=== PATIENT | male | born 1980 | race Caucasian/White ===

== ENCOUNTER 2016-12-24 15:23 | Emergency (ER) | payer OTHER ==
[~2016-12-24] VITALS: Ht 177.8 cm; Wt 73.3 kg
[~2016-12-24 15:23] MED LIST: ACID REDUCER10 MG PO; ADVIL200 MG PO; AUGMENTIN875 MG PO; BACTRIM,SEPT1 TABLET PO; COLAZAL750 MG PO; CREON 241 CAPSULE PO; DAILY VALUE1 EACH PO; DICYCLOMINE HCL20 MG PO; DILAUDID1 MG/ML IV; DILAUDID2 MG PO; ENDOCET 5-3251 EACH PO; FERROUS SULFAT325 MG PO; FLAGYL500 MG PO; IRON325 M1 PO; LANTUS 3 M100 UNITS1 SC; METFORMIN HCL1000 MG PO; MUCINEX600 MG PO; OXYCODONE HCL5 MG PO; OXYCODONE-APAP1 EACH PO; PANTOPRAZOLE SO40 MG PO; PERCOCET 10/1 TABLET PO; PERCOCET 5/31 TABLET PO; POTASSIUM CHLO20 ME1 PO; PREDNISONE10 MG PO; PREDNISONE20 MG PO; PROTONIX40 MG PO; REMICADE10 MG/ML IV; ROXICODONE5 MG PO; SOLU-MEDRO125 MG/21 IV; ZANTAC150 MG PO; ZANTAC75 M1 PO; ZOFRAN ODT4 MG PO; ZOFRAN4 MG PO; heartburn med PO
[2016-12-24 16:19] LABS: BASOPHIL COUNT 0.1 K/uL (0-0.1); EOSINOPHIL (%) 3.9 % (0-5); EOSINOPHIL COUNT 0.3 K/uL (0-0.3); HEMATOCRIT 46.9 % (38.0-50.0); LYMPHOCYTE COUNT 0.8 K/uL (1.0-2.8); MCH 30.5 PG (29.0-34.0); MCHC 34.8 G/DL (30.0-36.0); MCV 87.7 FL (86-99); MEAN PLAT.VOLUME 10.3 uM^3 (9.0-12.4); MONOCYTE (%) 4.3 % (3-12); MONOCYTE COUNT 0.3 K/uL (0-0.8); NEUTROPHIL (%) 80.7 % (45-76); NEUTROPHIL COUNT 6.2 K/uL (1.8-6.4); PLATELET COUNT 335 K/uL (156-360); RBC DIS.WIDTH-CV 12.5 % (11.8-14.6); RBC DIS.WIDTH-SD 39.9 % (39-53); RED BLOOD COUNT 5.35 M/uL (4.00-5.50); WHITE BLOOD COUNT 7.6 K/uL (4.1-10.2)
[2016-12-24 16:29] LABS: CHLORIDE 104 mEq/L (99-109); POTASSIUM 3.7 mEq/L (3.7-5.4); SODIUM 141 mEq/L (136-147)
[2016-12-24 16:31] LABS: GLUCOSE 208 mg/dL (70-99)
[2016-12-24 16:33] LABS: ANION GAP 11 MEQ/L (2-14); TOTAL BILIRUBIN 1.1 mg/dL (0.0-1.0)
[2016-12-24 16:35] LABS: ALKALINE PHOSPHATASE 281 IU/L (3-129); GFR ESTIMATE (CALCULATED) > 59 mL/min/
[2016-12-24 16:36] LABS: UREA NITROGEN (BUN) 9 mg/dL (9-23)
[2016-12-24 16:38] LABS: LIPASE 3 U/L (1.0-51.0)
[2016-12-24 19:07] LABS: POINT-OF-CARE METER ID UU14100415
[2016-12-24] MEDS ORDERED: PERCOCET 5/31 TABLET PO (20:30)
[2016-12-24 20:50] VITALS: BP 132/80
== END 2016-12-24 20:50 | disposition home or self-care (01) ==
LOC: EME 15:23
PROVIDERS: Emergency Medicine; Physician Assistant
DX: K62.89 Other specified diseases of anus and rectum (principal); K21.9 Gastro-esophageal reflux disease without esophagitis; Z93.2 Ileostomy status; Z87.891 Personal history of nicotine dependence
CPT/HCPCS: 74177; 80053; 81003; 82948; 83690; 85025; 99281; 99285; J1170; J2270; J7040

== ENCOUNTER 2017-04-19 15:01 | Emergency (ER) | payer OTHER ==
[~2017-04-19] VITALS: Ht 177.8 cm; Wt 69.1 kg
[2017-04-19 15:55] LABS: POINT-OF-CARE METER ID UU13113778
[2017-04-19 16:44] LABS: EOSINOPHIL (%) 0.1 % (0-5); HEMATOCRIT 50.7 % (38.0-50.0); IMMATURE GRANULOCYTE (%) 0.4 % (0.0-0.7); INSTRUMENT ABS NEUTROPHIL CT 8.1 K/uL; LYMPHOCYTE COUNT 1.1 K/uL (1.0-2.8); MCH 29.6 PG (29.0-34.0); MCHC 35.1 G/DL (30.0-36.0); MCV 84.4 FL (86-99); MONOCYTE (%) 5.4 % (3-12); MONOCYTE COUNT 0.5 K/uL (0-0.8); NEUTROPHIL (%) 82.5 % (45-76); NEUTROPHIL COUNT 8.1 K/uL (1.8-6.4); PLATELET COUNT 473 K/uL (156-360); RBC DIS.WIDTH-CV 13.2 % (11.8-14.6); RBC DIS.WIDTH-SD 40.1 % (39-53); RED BLOOD COUNT 6.01 M/uL (4.00-5.50); WHITE BLOOD COUNT 9.9 K/uL (4.1-10.2)
[2017-04-19 16:58] LABS: CHLORIDE 92 mEq/L (99-109); POTASSIUM 3.9 mEq/L (3.7-5.4); SODIUM 135 mEq/L (136-147)
[2017-04-19 17:00] LABS: GLUCOSE 304 mg/dL (70-99)
[2017-04-19 17:02] LABS: ANION GAP 18 MEQ/L (2-14)
[2017-04-19 17:04] LABS: ALKALINE PHOSPHATASE 318 IU/L (3-129); GFR ESTIMATE (CALCULATED) > 59 mL/min/
[2017-04-19 17:05] LABS: UREA NITROGEN (BUN) 27 mg/dL (9-23)
[2017-04-19 17:07] LABS: LIPASE 3 U/L (1.0-51.0)
[2017-04-19] MEDS ORDERED: LORTAB 10-3251 EACH PO (19:38)
[2017-04-19] MEDS ORDERED: ZOFRAN4 MG PO (19:38)
[2017-04-19 19:50] LABS: ADD MIUA? NO; BILIRUBIN NEGATIVE; BLOOD NEGATIVE; COLOR YELLOW ((YELLOW)); GLUCOSE (STRIP) 50; KETONES 5; LEUKOCYTES NEGATIVE; NITRITE NEGATIVE; PROTEIN (STRIP) 30; UCUL ADDED? NO; UROBILINOGEN 0.2 MG/DL (0.2-1.0)
[2017-04-19 20:06] LABS: SPECIFIC GRAVITY 1.094 (1.000-1.030)
[2017-04-19 20:20] VITALS: BP 111/78
== END 2017-04-19 20:22 | disposition home or self-care (01) ==
LOC: EME 15:01
PROVIDERS: Emergency Medicine
DX: R11.2 Nausea with vomiting, unspecified (principal); E86.0 Dehydration; Z87.891 Personal history of nicotine dependence
CPT/HCPCS: 74177; 80053; 81003; 82948; 83690; 85025; 99281; 99284; J2270; J2405; J3010; J7030

== ENCOUNTER 2017-06-12 18:59 | Inpatient (IN) | payer OTHER ==
[~2017-06-12] VITALS: Ht 177.8 cm; Wt 71.2 kg
[~2017-06-12 18:59] MED LIST changes: +LORTAB 10-3251 EACH PO
[2017-06-12 20:17] LABS: EOSINOPHIL (%) 0 % (0-5); HEMATOCRIT 46.1 % (38.0-50.0); IMMATURE GRANULOCYTE (%) 0.4 % (0.0-0.7); IMMATURE GRANULOCYTE COUNT 0.1 K/uL; INSTRUMENT ABS NEUTROPHIL CT 12.7 K/uL; LYMPHOCYTE COUNT 0.9 K/uL (1.0-2.8); MCH 30.5 PG (29.0-34.0); MCHC 35.8 G/DL (30.0-36.0); MCV 85.2 FL (86-99); MEAN PLAT.VOLUME 10.2 uM^3 (9.0-12.4); MONOCYTE (%) 6.5 % (3-12); NEUTROPHIL (%) 86.7 % (45-76); NEUTROPHIL COUNT 12.7 K/uL (1.8-6.4); PLATELET COUNT 347 K/uL (156-360); RBC DIS.WIDTH-CV 12.4 % (11.8-14.6); RBC DIS.WIDTH-SD 38.4 % (39-53); RED BLOOD COUNT 5.41 M/uL (4.00-5.50); WHITE BLOOD COUNT 14.7 K/uL (4.1-10.2)
[2017-06-12 20:28] LABS: CHLORIDE 69 mEq/L (99-109); SODIUM 128 mEq/L (136-147)
[2017-06-12 20:31] LABS: ANION GAP 28 MEQ/L (2-14)
[2017-06-12 20:32] LABS: TOTAL BILIRUBIN 3.2 mg/dL (0.0-1.0)
[2017-06-12 20:33] LABS: ALKALINE PHOSPHATASE 361 IU/L (3-129)
[2017-06-12 20:34] LABS: GFR ESTIMATE (CALCULATED) 40 mL/min/
[2017-06-12 20:35] LABS: UREA NITROGEN (BUN) 48 mg/dL (9-23)
[2017-06-12 20:37] LABS: LIPASE 9 U/L (1.0-51.0)
[2017-06-12 20:39] LABS: GLUCOSE 681 mg/dL (70-99)
[2017-06-12 21:15] LABS: Estimated Average Glucose 177 mg/dL (70-123); HEMOGLOBIN A1c (GLYCOHEMOGLOB) 7.8 % HGB (Below 5.7)
[2017-06-12 22:07] LABS: C DIFF TOXIN NEGATIVE (NEGATIVE)
[2017-06-12 22:08] LABS: PROBE CHECK PASS; SPECIMEN PROCESSING CONTROL PASS
[2017-06-12 22:29] LABS: ADD MIUA? NO; BILIRUBIN NEGATIVE; BLOOD NEGATIVE; COLOR STRAW ((YELLOW)); GLUCOSE (STRIP) >=500; KETONES 5; LEUKOCYTES NEGATIVE; NITRITE NEGATIVE; PROTEIN (STRIP) NEGATIVE; UCUL ADDED? NO; UROBILINOGEN 0.2 MG/DL (0.2-1.0)
[2017-06-12] MEDS ORDERED: NOVOLOG PE100 UNITS/ SC (22:41)
[2017-06-12] MEDS ORDERED: HYDROXYZINE PAM25 MG PO (22:42)
[2017-06-12] MEDS ORDERED: BASAGLAR K100 UNIT/1 SC (22:42)
[2017-06-12] MEDS ORDERED: PROMETHAZINE HC25 M1 PO (22:43)
[2017-06-12] MEDS ORDERED: SUMATRIPTAN SUC25 MG PO (22:43)
[2017-06-12] MEDS ORDERED: PEPCID AC10 MG PO (22:44)
[2017-06-12 23:13] LABS: POINT-OF-CARE METER ID UU14100415
[2017-06-12 23:19] LABS: VENOUS PCO2 49 mm Hg (41-51)
[2017-06-12 23:21] LABS: CARBON DIOXIDE (BICARBONATE) > 40.0 MEQ/L (20-31)
[2017-06-13 01:03] LABS: EOSINOPHIL (%) 0.3 % (0-5); HEMATOCRIT 37.5 % (38.0-50.0); IMMATURE GRANULOCYTE (%) 0.4 % (0.0-0.7); INSTRUMENT ABS NEUTROPHIL CT 7.4 K/uL; LYMPHOCYTE COUNT 1.4 K/uL (1.0-2.8); MCH 30.5 PG (29.0-34.0); MCHC 35.7 G/DL (30.0-36.0); MCV 85.4 FL (86-99); MEAN PLAT.VOLUME 9.8 uM^3 (9.0-12.4); MONOCYTE (%) 8.9 % (3-12); MONOCYTE COUNT 0.9 K/uL (0-0.8); NEUTROPHIL (%) 76.2 % (45-76); NEUTROPHIL COUNT 7.4 K/uL (1.8-6.4); PLATELET COUNT 258 K/uL (156-360); RBC DIS.WIDTH-CV 12.4 % (11.8-14.6); RBC DIS.WIDTH-SD 38.5 % (39-53); RED BLOOD COUNT 4.39 M/uL (4.00-5.50); WHITE BLOOD COUNT 9.8 K/uL (4.1-10.2)
[2017-06-13 03:10] LABS: GLUCOSE 444 mg/dL (70-99)
[2017-06-13 03:11] LABS: CHLORIDE 87 MEQ/L (99-109); GFR ESTIMATE (CALCULATED) > 59 mL/min/; POTASSIUM 3.2 MEQ/L (3.7-5.4); SODIUM 136 MEQ/L (136-147); UREA NITROGEN (BUN) 37 mg/dL (9-23)
[2017-06-13 03:13] LABS: ALKALINE PHOSPHATASE 247 IU/L (3-129); ANION GAP 18 MEQ/L (2-14); TOTAL BILIRUBIN 2.1 MG/DL (0.0-1.0)
[2017-06-13 05:05] LABS: POINT-OF-CARE METER ID UU14100415; POINT-OF-CARE USER ID NUTMMM10
[2017-06-13 07:23] LABS: HEMATOCRIT 36.2 % (38.0-50.0); MCH 30.5 PG (29.0-34.0); MCHC 35.4 G/DL (30.0-36.0); MCV 86.4 FL (86-99); MEAN PLAT.VOLUME 9.9 uM^3 (9.0-12.4); PLATELET COUNT 232 K/uL (156-360); RBC DIS.WIDTH-CV 12.3 % (11.8-14.6); RBC DIS.WIDTH-SD 38.8 % (39-53); RED BLOOD COUNT 4.19 M/uL (4.00-5.50); WHITE BLOOD COUNT 7.3 K/uL (4.1-10.2)
[2017-06-13 07:44] LABS: CHLORIDE 90 mEq/L (99-109); POTASSIUM 3.8 mEq/L (3.7-5.4); SODIUM 135 mEq/L (136-147)
[2017-06-13 07:46] LABS: GLUCOSE 397 mg/dL (70-99)
[2017-06-13 07:47] LABS: ANION GAP 12 MEQ/L (2-14)
[2017-06-13 07:48] VITALS: BP 114/56
[2017-06-13 07:50] LABS: GFR ESTIMATE (CALCULATED) > 59 mL/min/
[2017-06-13 07:51] VITALS: BP 114/56
[2017-06-13 07:51] LABS: UREA NITROGEN (BUN) 32 mg/dL (9-23)
[2017-06-13 07:54] LABS: ALKALINE PHOSPHATASE 230 IU/L (3-129)
[2017-06-13 08:16] LABS: TOTAL BILIRUBIN 1.7 mg/dL (0.0-1.0)
[2017-06-13 11:06] VITALS: BP 113/63
[2017-06-13 12:31] LABS: METH RESISTANT S AUREUS PCR NEGATIVE (NEGATIVE); PROBE CHECK PASS; SPECIMEN PROCESSING CONTROL PASS
[2017-06-13 16:30] VITALS: BP 128/69
[2017-06-13 20:03] VITALS: BP 107/55
[2017-06-13 23:44] VITALS: BP 99/51
[2017-06-14 03:47] LABS: POINT-OF-CARE METER ID UU14188625
[2017-06-14 04:08] VITALS: BP 108/56
[2017-06-14 05:59] LABS: HEMATOCRIT 34.5 % (38.0-50.0); MCH 30.3 PG (29.0-34.0); MCHC 34.2 G/DL (30.0-36.0); MCV 88.5 FL (86-99); MEAN PLAT.VOLUME 10.2 uM^3 (9.0-12.4); PLATELET COUNT 213 K/uL (156-360); RBC DIS.WIDTH-CV 12.2 % (11.8-14.6); RBC DIS.WIDTH-SD 39.2 % (39-53); WHITE BLOOD COUNT 6.1 K/uL (4.1-10.2)
[2017-06-14 06:00] LABS: INTER. NORMALIZED RATIO 1.1; PROTHROMBIN TIME 11.9 SEC (10.2-12.9)
[2017-06-14 06:03] LABS: PTT 30.9 SEC (25-37)
[2017-06-14 07:32] LABS: POINT-OF-CARE METER ID UU14188625
[2017-06-14 07:43] VITALS: BP 97/57
[2017-06-14 11:18] LABS: POINT-OF-CARE METER ID UU14174225
[2017-06-14 11:25] VITALS: BP 102/57
[2017-06-14 15:46] VITALS: BP 111/61
[2017-06-14 16:51] LABS: POINT-OF-CARE METER ID UU14188625
[2017-06-14 20:12] LABS: C DIFF TOXIN ND (NEGATIVE)
[2017-06-14 23:27] LABS: IgG Subclass 4 (QD) 25.4 mg/dL (4.0-86.0)
[2017-06-15 00:12] VITALS: BP 104/55
[2017-06-15 06:11] LABS: BASOPHIL COUNT 0.1 K/uL (0-0.1); EOSINOPHIL (%) 6.5 % (0-5); EOSINOPHIL COUNT 0.4 K/uL (0-0.3); IMMATURE GRANULOCYTE (%) 0.3 % (0.0-0.7); INSTRUMENT ABS NEUTROPHIL CT 3.4 K/uL; LYMPHOCYTE COUNT 1.5 K/uL (1.0-2.8); MCH 31.5 PG (29.0-34.0); MCHC 35.3 G/DL (30.0-36.0); MCV 89.3 FL (86-99); MEAN PLAT.VOLUME 10.4 uM^3 (9.0-12.4); MONOCYTE (%) 7.6 % (3-12); MONOCYTE COUNT 0.4 K/uL (0-0.8); NEUTROPHIL (%) 58.4 % (45-76); NEUTROPHIL COUNT 3.4 K/uL (1.8-6.4); PLATELET COUNT 211 K/uL (156-360); RBC DIS.WIDTH-CV 12.2 % (11.8-14.6); RBC DIS.WIDTH-SD 39.8 % (39-53); RED BLOOD COUNT 4.03 M/uL (4.00-5.50); WHITE BLOOD COUNT 5.8 K/uL (4.1-10.2)
[2017-06-15 08:15] LABS: POINT-OF-CARE METER ID UU13113717
[2017-06-15 08:29] VITALS: BP 110/68
[2017-06-15 11:37] LABS: POINT-OF-CARE METER ID UU14188625
[2017-06-15 14:57] LABS: POINT-OF-CARE METER ID UU14188625
[2017-06-15 15:06] VITALS: BP 121/74
[2017-06-15 17:55] LABS: POINT-OF-CARE METER ID UU13113819; POINT-OF-CARE USER ID 515036437
[2017-06-15 21:04] LABS: POINT-OF-CARE METER ID UU13113717
[2017-06-15 22:17] LABS: MITOCHONDRIAL (M2) ANTIBODIES+ <=20.0 U (<=20.0)
[2017-06-15 23:48] VITALS: BP 109/66
[2017-06-16 08:26] VITALS: BP 119/67
[2017-06-16 08:45] LABS: POINT-OF-CARE METER ID UU13113717
[2017-06-16 12:03] LABS: POINT-OF-CARE METER ID UU14174225
[2017-06-16] MEDS ORDERED: DULOXETINE HCL30 MG PO (13:04)
[2017-06-16] MEDS ORDERED: BENTYL20 MG PO (13:04)
[2017-06-16] MEDS ORDERED: HYDROCORTISONE30 G2 PR (13:05)
[2017-06-16] MEDS ORDERED: PROTONIX40 MG PO (13:05)
[2017-06-16] MEDS ORDERED: OXYCODONE-APAP1 EACH PO (13:06)
[2017-06-16] MEDS ORDERED: METRONIDAZOLE500 MG PO (13:09)
[2017-06-16] MEDS ORDERED: BUSPAR10 MG PO (13:09)
== END 2017-06-16 16:01 | disposition home or self-care (01) | DRG 392 ==
LOC: EME 18:59 → 5SOUTH 06-13 00:38 → EDOF 06-13 00:38 → ENRESERV 06-13 03:44 → EDOF 06-13 05:43 → ENRESERV 06-13 05:54 → 5SOUTH 06-13 07:23
PROVIDERS: Emergency Medicine; Hospitalist; Internal Medicine; Specialist
PROC: 0DB38ZX Excision of Lower Esophagus, Via Natural or Artificial Opening Endoscopic, Diagnostic (ICD-10-PCS; principal; 2017-06-15)
PROC: 0DB68ZX Excision of Stomach, Via Natural or Artificial Opening Endoscopic, Diagnostic (ICD-10-PCS; principal; 2017-06-15)
PROC: 0DBP8ZX Excision of Rectum, Via Natural or Artificial Opening Endoscopic, Diagnostic (ICD-10-PCS; principal; 2017-06-15)
PROC: 0DBA8ZX Excision of Jejunum, Via Natural or Artificial Opening Endoscopic, Diagnostic (ICD-10-PCS; principal; 2017-06-15)
DX: K29.70 Gastritis, unspecified, without bleeding (principal); K91.850 Pouchitis; N17.9 Acute kidney failure, unspecified; E10.65 Type 1 diabetes mellitus with hyperglycemia; E86.0 Dehydration; E87.6 Hypokalemia; K51.20 Ulcerative (chronic) proctitis without complications; A09 Infectious gastroenteritis and colitis, unspecified; K20.9 Esophagitis, unspecified; K29.80 Duodenitis without bleeding; K58.9 Irritable bowel syndrome, unspecified; F34.1 Dysthymic disorder; F41.1 Generalized anxiety disorder; G89.4 Chronic pain syndrome; G43.909 Migraine, unspecified, not intractable, without status migrainosus; Z79.84 Long term (current) use of oral hypoglycemic drugs; Z79.4 Long term (current) use of insulin; Z93.2 Ileostomy status
CPT/HCPCS: 74022; 74176; 80053; 81003; 82787 90; 82803; 82948; 83036; 83605; 83690; 84075 90; 84080 90; 85025; 85027; 85610; 85730; 86038; 86256 90; 87040; 87086; 87493; 87506; 87641; 88305; 88312; 88342 TC; 99281; 99285; C9113; J0610; J1170; J1644; J1815; J2270; J2405; J2543; J3480; J7030; J7050; S0028

== ENCOUNTER 2018-02-24 10:09 | Emergency (ER) | payer OTHER ==
[~2018-02-24] VITALS: Ht 177.8 cm; Wt 67.4 kg
[~2018-02-24 10:09] MED LIST changes: +BASAGLAR K100 UNIT/1 SC; +BENTYL20 MG PO; +BUSPAR10 MG PO; +DULOXETINE HCL30 MG PO; +HYDROCORTISONE30 G2 PR; +HYDROXYZINE PAM25 MG PO; +METRONIDAZOLE500 MG PO; +NOVOLOG PE100 UNITS/ SC; +PEPCID AC10 MG PO; +PROMETHAZINE HC25 M1 PO; +SUMATRIPTAN SUC25 MG PO
[2018-02-24 11:04] LABS: BASOPHIL (%) 0.7 % (0-1); BASOPHIL COUNT 0.1 K/uL (0-0.1); EOSINOPHIL (%) 1.7 % (0-5); EOSINOPHIL COUNT 0.2 K/uL (0-0.3); HEMATOCRIT 48.1 % (38.0-50.0); HEMOGLOBIN 16.8 G/DL (12.5-16.6); IMMATURE GRANULOCYTE (%) 0.4 % (0.0-0.7); LYMPHOCYTE (%) 8.7 % (15-42); LYMPHOCYTE COUNT 0.9 K/uL (1.0-2.8); MCH 30.3 PG (29.0-34.0); MCHC 34.9 G/DL (30.0-36.0); MCV 86.7 FL (86-99); MONOCYTE (%) 4.6 % (3-12); MONOCYTE COUNT 0.5 K/uL (0-0.8); NEUTROPHIL (%) 83.9 % (45-76); PLATELET COUNT 268 K/uL (156-360); RBC DIS.WIDTH-CV 12.3 % (11.8-14.6); RBC DIS.WIDTH-SD 39.1 % (39-53); RED BLOOD COUNT 5.55 M/uL (4.00-5.50); WHITE BLOOD COUNT 10.7 K/uL (4.1-10.2)
[2018-02-24 11:15] LABS: ALBUMIN 4.5 g/dL (3.2-4.8); CHLORIDE 101 mEq/L (99-109); POTASSIUM 4.4 mEq/L (3.7-5.4); SODIUM 133 mEq/L (136-147)
[2018-02-24 11:20] LABS: TOTAL BILIRUBIN 1.3 mg/dL (0.0-1.0)
[2018-02-24 11:21] LABS: ALKALINE PHOSPHATASE 708 IU/L (3-129); CREATININE 1.2 mg/dL (0.6-1.3); GFR ESTIMATE (CALCULATED) > 59 mL/min/ (58.99-99999)
[2018-02-24 11:22] LABS: UREA NITROGEN (BUN) 15 mg/dL (9-23)
[2018-02-24 11:23] LABS: AST (GOT) 15 IU/L (2-34)
[2018-02-24 11:24] LABS: ALT (GPT) 21 IU/L (3-49)
[2018-02-24 11:25] LABS: LIPASE 7 U/L (1.0-51.0)
[2018-02-24 11:27] LABS: GLUCOSE 475 mg/dL (70-99)
[2018-02-24 11:56] LABS: APPEARANCE CLEAR ((CLEAR)); BILIRUBIN NEGATIVE; BLOOD NEGATIVE; COLOR YELLOW ((YELLOW)); GLUCOSE (STRIP) >=500; KETONES NEGATIVE; LEUKOCYTES NEGATIVE; NITRITE NEGATIVE; PROTEIN (STRIP) NEGATIVE; SPECIFIC GRAVITY 1.037 (1.000-1.030); UCUL ADDED? NO; UROBILINOGEN 0.2 MG/DL (0.2-1.0)
[2018-02-24] MEDS ORDERED: AUGMENTIN875 MG PO (14:21)
[2018-02-24] MEDS ORDERED: FLAGYL500 MG PO (14:21)
[2018-02-24] MEDS ORDERED: DILAUDID2 MG PO (14:21)
[2018-02-24 15:57] VITALS: BP 112/68
== END 2018-02-24 16:06 | disposition home or self-care (01) ==
LOC: EME 10:09
PROVIDERS: Emergency Medicine
DX: K62.89 Other specified diseases of anus and rectum (principal); E10.65 Type 1 diabetes mellitus with hyperglycemia; K21.9 Gastro-esophageal reflux disease without esophagitis; F41.9 Anxiety disorder, unspecified; Z93.2 Ileostomy status; Z87.891 Personal history of nicotine dependence; Z79.4 Long term (current) use of insulin; Z88.1 Allergy status to other antibiotic agents
CPT/HCPCS: 74177; 80053; 81003; 82948; 83605; 83690; 85025; 99281; 99285; J7030